=== PATIENT | female | born 1965 | race Native Hawaiian/Other Pacific Islander ===

== ENCOUNTER 2016-06-09 13:38 | Emergency (ER) | payer BC ==
[~2016-06-09] VITALS: Ht 167.6 cm; Wt 81.6 kg
[~2016-06-09 13:38] MED LIST: ACET-689 PO; ANTIHISTAMIN25 MG OR; BRINTELLIX10 MG PO; CELEXA40 MG PO; CEPH500C20 PO; CYCL10TA35 PO; HYDACET7.5 PO; LOESTRIN 24 PO; MEDROL DOSEPAK4 MG OR; MEDROL DOSEPAK4 MG PO; ONDA4TAB3 PO; PHENTERMINE37.5 MG OR; PROVERA10 MG OR; TOBRSUS OP; XYZAL5 MG OR; ZANTAC 75 PO
[2016-06-09 18:50] VITALS: BP 142/80; TEMP 98
== END 2016-06-09 18:51 | disposition home or self-care (01) ==
LOC: ED 13:38
DX: S00.83XA Contusion of other part of head, initial encounter (principal); S40.022A Contusion of left upper arm, initial encounter; S40.021A Contusion of right upper arm, initial encounter; Y09 Assault by unspecified means; Y92.511 Restaurant or cafe as the place of occurrence of the external cause
CPT/HCPCS: 99283

== ENCOUNTER 2016-06-29 10:17 | Emergency (ER) | payer BC ==
[~2016-06-29] VITALS: Ht 167.6 cm; Wt 90.7 kg
[2016-06-29 11:12] LABS: PLATELET COUNT 72 K/uL (152-353)
[2016-06-29 11:25] LABS: POTASSIUM 3.6 mmol/L (3.6-5.2); SODIUM 134 mmol/L (136-145)
[2016-06-29 12:02] VITALS: BP 128/82; TEMP 98
== END 2016-06-29 12:03 | disposition home or self-care (01) ==
LOC: ED 10:17
DX: J02.0 Streptococcal pharyngitis (principal)
CPT/HCPCS: 36415; 80053; 81000; 85027; 87880; 96372; 99283; J0696

== ENCOUNTER 2016-08-18 19:38 | Inpatient (IN) | payer OTHER ==
[2016-08-18] VITALS (7 sets, daily range): BP systolic 123–153; BP diastolic 70–91; TEMP 98.7–98.9; Ht 167.6 cm; Wt 98.5 kg
[~2016-08-18] VITALS: Ht 167.6 cm; Wt 98.5 kg
[2016-08-18 20:34] LABS: PLATELET COUNT 75 K/uL (152-353)
[2016-08-18 20:45] LABS: POTASSIUM 3.7 mmol/L (3.6-5.2)
[2016-08-19] VITALS: BP 123/72; TEMP 98.7
[2016-08-19 04:00] VITALS: BP 109/61; TEMP 98.2
[2016-08-19 08:00] VITALS: BP 105/59; TEMP 98.6
[2016-08-19 08:49] LABS: PLATELET COUNT 63 K/uL (152-353)
[2016-08-19 09:06] LABS: POTASSIUM 3.9 mmol/L (3.6-5.2); SODIUM 138 mmol/L (136-145)
[2016-08-19 12:00] VITALS: BP 104/62; TEMP 98.6
[2016-08-19 16:00] VITALS: BP 105/61; TEMP 97.9
[2016-08-19 20:00] VITALS: BP 103/53; TEMP 98.1
[2016-08-20] VITALS: BP 95/51; TEMP 98
[2016-08-20 04:00] VITALS: BP 102/54; TEMP 98
[2016-08-20 06:55] LABS: PLATELET COUNT 73 K/uL (152-353)
[2016-08-20 08:00] VITALS: BP 96/52; TEMP 98
[2016-08-20 08:27] LABS: SODIUM 142 mmol/L (136-145)
[2016-08-20 12:00] VITALS: BP 105/62; TEMP 98.2
[2016-08-20 16:00] VITALS: BP 124/52; TEMP 98.4
[2016-08-20 20:00] VITALS: BP 112/56; TEMP 98.4
[2016-08-21 00:26] VITALS: BP 92/44; TEMP 98.5
[2016-08-21 04:00] VITALS: BP 94/57; TEMP 98.1
[2016-08-21 05:21] LABS: PLATELET COUNT 70 K/uL (152-353)
[2016-08-21 05:37] LABS: POTASSIUM 3.8 mmol/L (3.6-5.2); SODIUM 142 mmol/L (136-145)
[2016-08-21 07:47] VITALS: BP 117/54; TEMP 98.4
--- NOTE | 2016-08-21 09:52 | NUR ---
DC INSTRUCTIONS GIVEN TO PT. PT VERBALIZED UNDERSTANDING. CALLED IN RX TO [facility]. FOLLWO UP APPT ON 08/26/16 AT 0945. IV DC'D WITH CANNULA INTACT AND SITE CARE PROVIDED. PT INSTRUCTED TO CALL WHEN READY AND WILL WHEEL OUT.
--- NOTE | 2016-08-21 10:34 | NUR ---
1015- PT LEFT AMBULATORY REQUESTED. NAD NOTED.
== END 2016-08-21 10:08 | disposition home or self-care (01) | DRG 603 ==
LOC: ED 19:38 → MED/SURG 21:57
PROVIDERS: Specialist; ADMIT Family Medicine
DX: L03.315 Cellulitis of perineum (principal); R78.81 Bacteremia; J02.9 Acute pharyngitis, unspecified; H66.90 Otitis media, unspecified, unspecified ear
CPT/HCPCS: 36415; 80053; 81000; 83605; 83735; 85027; 85651; 87040; 87880; 96361; 96365; 96374; 96375; 99284; J0595; J1450; J1885; J2405; J2543

== ENCOUNTER 2016-11-13 10:32 | Observation (INO) | payer BC ==
[~2016-11-13] VITALS: Ht 167.6 cm; Wt 95.5 kg
[2016-11-13 11:16] VITALS: BP 131/77; TEMP 100; Ht 167.6 cm; Wt 95.5 kg
[2016-11-13 12:00] VITALS: BP 131/77; TEMP 100
[2016-11-13 13:40] LABS: PLATELET COUNT 153 K/uL (152-353)
[2016-11-13 14:06] LABS: POTASSIUM 4.2 mmol/L (3.6-5.2); SODIUM 138 mmol/L (136-145)
[2016-11-13 16:00] VITALS: BP 107/64; TEMP 97.9
[2016-11-13 20:00] VITALS: BP 103/61; TEMP 98.8
[2016-11-14] VITALS: BP 99/55; TEMP 98.1
[2016-11-14 04:00] VITALS: BP 109/52; TEMP 97.9
[2016-11-14 04:26] LABS: PLATELET COUNT 91 K/uL (152-353)
[2016-11-14 04:37] LABS: SODIUM 140 mmol/L (136-145)
[2016-11-14 08:00] VITALS: BP 123/70; TEMP 99.3
[2016-11-14] MEDS ORDERED: DULO30CA OR (09:46)
[2016-11-14] MEDS ORDERED: ALBU90AE13 INH (09:51)
[2016-11-14] MEDS ORDERED: PRED10TA27 PO (09:53)
[2016-11-14] MEDS ORDERED: ONDA4TAB3 PO (09:56)
[2016-11-14 12:00] VITALS: BP 113/72; TEMP 98.6
--- NOTE | 2016-11-14 16:08 | NUR ---
D/C ORDERS RECIEVED FROM DR. FIGUEROA. IV D/C'D. F/U APT WITH DR. FIGUEROA ON 11-20-16 AT 0945. D/C INSTRUCTIONS GIVEN. PT HAS NO FUTHER QUESTION. PT TAKEN OUT TO CAR VIA W/C BY NURSE.
== END 2016-11-14 16:05 | disposition home or self-care (01) ==
LOC: MED/SURG 10:32
PROVIDERS: ADMIT Family Medicine
DX: J20.8 Acute bronchitis due to other specified organisms (principal); J10.1 Influenza due to other identified influenza virus with other respiratory manifestations
CPT/HCPCS: 36415; 36591; 80053; 85027; 87040; 93005; 94640; 94664; 94668; 94760; 96365; 96366; 96367; 96375; 99220; G0378; G0379; J2405

== ENCOUNTER 2016-12-30 10:37 | Outpatient (CLI) | payer BC ==
[~2016-12-30 10:37] MED LIST changes: +ALBU90AE13 INH; +DULO30CA OR; +PRED10TA27 PO
== END 2016-12-30 11:40 | disposition home or self-care (01) ==
LOC: RAD 10:37
DX: M79.671 Pain in right foot (principal)

== ENCOUNTER 2017-10-09 17:11 | Observation (INO) | payer BC ==
[~2017-10-09] VITALS: Ht 167.6 cm; Wt 87.8 kg
[2017-10-09 17:39] LABS: PLATELET COUNT 73 K/uL (152-353)
[2017-10-09 17:57] LABS: PARTIAL THROMBOPLASTIN TIME 23.9 SECONDS (24.5-33.6)
[2017-10-09 17:58] LABS: POTASSIUM 3.9 mmol/L (3.6-5.2); SODIUM 141 mmol/L (136-145)
[2017-10-09 18:18] VITALS: BP 139/75; TEMP 98.4; Ht 167.6 cm; Wt 87.8 kg
[2017-10-09] MEDS ORDERED: TEMA15CA19 PO (18:38)
[2017-10-09] MEDS ORDERED: SERT50TA PO (18:38)
[2017-10-09 20:00] VITALS: BP 133/67; TEMP 98.5
[2017-10-10] VITALS: BP 113/59; TEMP 98.4
[2017-10-10 04:00] VITALS: BP 121/62; TEMP 98.4
--- NOTE | 2017-10-10 04:28 | NUR ---
10/09/[id number] PHARM D CALLED FOR CLARIFICATION TO D/C LOVENOX DUE TO PLATELETS BEING 73. 10/09/[id number] DR. ESCOBAR WAS NOTIFIED AND CLARIFIED TO D/C LOVENOX DUE TO PLATETLETS BEING 73.
[2017-10-10 07:44] VITALS: BP 110/68; TEMP 97.5
[2017-10-10 12:25] VITALS: BP 122/68; TEMP 97.8
[2017-10-10 16:04] VITALS: BP 138/68; TEMP 98.1
== END 2017-10-10 19:40 | disposition home or self-care (01) ==
LOC: MED/SURG 17:11
PROVIDERS: ADMIT Family Medicine
DX: F43.29 Adjustment disorder with other symptoms (principal); R07.89 Other chest pain; E86.0 Dehydration; D69.6 Thrombocytopenia, unspecified
CPT/HCPCS: 36415; 80053; 82550; 84484; 85027; 85610; 85730; 93005; 96365; 96366; 99220; G0378; G0379

== ENCOUNTER 2018-01-21 08:26 | Outpatient (CLI) | payer BC ==
[~2018-01-21 08:26] MED LIST changes: +SERT50TA PO; +TEMA15CA19 PO
== END 2018-01-21 19:17 | disposition home or self-care (01) ==
LOC: RAD 08:26
DX: M85.80 Other specified disorders of bone density and structure, unspecified site (principal); Z78.0 Asymptomatic menopausal state

== ENCOUNTER 2018-09-22 17:26 | Outpatient (CLI) | payer OTHER | END 2018-09-22 23:31 | disposition home or self-care (01) | LOC: LAB 17:26 → RAD 17:26 → LAB 23:31 | DX: R00.2 Palpitations (principal) | CPT/HCPCS: 84484 ==

== ENCOUNTER 2018-11-16 14:59 | Outpatient (CLI) | payer OTHER | END 2018-11-16 23:59 | LOC: RAD 14:59 | DX: M54.17 Radiculopathy, lumbosacral region (principal); M25.551 Pain in right hip ==

== ENCOUNTER 2018-12-01 07:53 | Outpatient (CLI) | payer OTHER | END 2018-12-01 21:35 | disposition home or self-care (01) | LOC: US 07:53 | DX: R10.11 Right upper quadrant pain (principal); R16.1 Splenomegaly, not elsewhere classified ==

== ENCOUNTER 2018-12-13 16:05 | Outpatient (CLI) | payer OTHER ==
[2018-12-13 16:21] LABS: PLATELET COUNT 71 K/uL (152-353)
[2018-12-13 16:32] LABS: POTASSIUM 4.3 mmol/L (3.6-5.2)
== END 2018-12-13 20:12 | disposition home or self-care (01) ==
LOC: LABW 16:05
PROVIDERS: Podiatrist
DX: Z01.810 Encounter for preprocedural cardiovascular examination (principal); Z01.811 Encounter for preprocedural respiratory examination; Z01.812 Encounter for preprocedural laboratory examination
CPT/HCPCS: 36415; 80053; 85027

== ENCOUNTER 2019-12-27 16:20 | Inpatient (IN) | payer OTHER ==
[~2019-12-27] VITALS: Ht 167.6 cm; Wt 90.9 kg
[2019-12-27 18:30] VITALS: BP 127/81; TEMP 98.4; Ht 167.6 cm; Wt 90.9 kg
[2019-12-27 19:09] LABS: PLATELET COUNT 64 K/uL (152-353)
[2019-12-27 19:32] LABS: PARTIAL THROMBOPLASTIN TIME 22.1 SECONDS (24.5-33.6)
[2019-12-27] MEDS ORDERED: LEXAPRO20 MG PO (19:55)
[2019-12-27 20:00] VITALS: BP 137/79; TEMP 98.8
[2019-12-27] MEDS ORDERED: APIX1TAB PO (20:06)
[2019-12-27 20:25] LABS: POTASSIUM 3.8 mmol/L (3.6-5.2); SODIUM 140 mmol/L (136-145)
[2019-12-28] VITALS (8 sets, daily range): BP systolic 97–161; BP diastolic 56–94; TEMP 98.1–98.9
[2019-12-28 06:01] LABS: POTASSIUM 4.3 mmol/L (3.6-5.2)
[2019-12-28 06:04] LABS: PLATELET COUNT 54 K/uL (152-353)
[2019-12-29 04:00] VITALS: BP 128/68; TEMP 98.5
[2019-12-29 05:40] LABS: PLATELET COUNT 64 K/uL (152-353); POTASSIUM 3.9 mmol/L (3.6-5.2)
[2019-12-29 07:54] VITALS: BP 152/85; TEMP 98.1
[2019-12-29 12:00] VITALS: BP 159/66; TEMP 98.1
[2019-12-29 16:00] VITALS: BP 140/71; TEMP 97.9
== END 2019-12-29 17:50 | disposition home or self-care (01) | DRG 178 ==
LOC: MED/SURG 16:20
PROVIDERS: ADMIT Family Medicine
DX: U07.1 COVID-19 (principal); D69.3 Immune thrombocytopenic purpura; I95.89 Other hypotension
CPT/HCPCS: 36415; 80053; 81000; 82550; 82728; 83735; 83874; 84100; 84484; 85027; 85379; 85610; 85730; 86140; 87040; 87651; 93005; 94667; 94668; 94760; J0456; J0696; J3475

== ENCOUNTER 2020-01-26 09:53 | Outpatient (CLI) | payer OTHER ==
[~2020-01-26 09:53] MED LIST changes: +APIX1TAB PO; +LEXAPRO20 MG PO
== END 2020-01-26 23:12 | disposition home or self-care (01) ==
LOC: LABW 09:53
DX: R05 Cough (principal); R50.81 Fever presenting with conditions classified elsewhere
CPT/HCPCS: 87502

== ENCOUNTER 2020-05-02 10:26 | Outpatient (CLI) | payer OTHER | END 2020-05-02 21:43 | disposition home or self-care (01) | LOC: RAD 10:26 | PROVIDERS: ATTEND Family Medicine | DX: J20.8 Acute bronchitis due to other specified organisms (principal) ==

== ENCOUNTER 2020-11-21 09:45 | Outpatient (CLI) | payer OTHER ==
[2020-11-21 11:00] LABS: POTASSIUM 4.8 mmol/L (3.6-5.2)
== END 2020-11-21 19:07 | disposition home or self-care (01) ==
LOC: LABW 09:45 → RAD 09:45 → LABW 19:07
PROVIDERS: ATTEND Nurse Practitioner Family
DX: Z03.89 Encounter for observation for other suspected diseases and conditions ruled out (principal)
CPT/HCPCS: 36415; 80053; 82728; 85379; 86140

== ENCOUNTER 2021-05-09 13:25 | Outpatient (CLI) | payer OTHER | END 2021-05-09 19:17 | disposition home or self-care (01) | LOC: CT 13:25 | PROVIDERS: ATTEND Nurse Practitioner Family | DX: Z09 Encounter for follow-up examination after completed treatment for conditions other than malignant neoplasm (principal); Z86.16 Personal history of COVID-19 ==

== ENCOUNTER 2022-01-13 10:00 | Outpatient (CLI) | payer OTHER ==
[~2022-01-13] VITALS: Ht 167.6 cm; Wt 98.9 kg
[2022-01-13 10:01] VITALS: BP 123/77; TEMP 98.5
[2022-01-13 10:44] LABS: POTASSIUM 3.6 mmol/L (3.6-5.2)
[2022-01-13 11:44] VITALS: BP 133/69; TEMP 98.5
== END 2022-01-13 20:43 | disposition home or self-care (01) ==
LOC: INF 10:00
PROVIDERS: ATTEND Family Medicine
DX: J09.X2 Influenza due to identified novel influenza A virus with other respiratory manifestations (principal)
CPT/HCPCS: 80053; 96360